=== PATIENT | female | born 1985 | race Caucasian/White ===

== ENCOUNTER 2018-01-29 20:13 | Emergency (ER) | payer SELFPAY, MEDICAID ==
[2018-01-29] MEDS: ONDANSETRON (ODT) 4 MG TAB ODT (23:25)
[2018-01-29] MEDS: DICYCLOMINE 10 MG CAP PO (23:25)
[2018-01-29] MEDS: ACETAMINOPHEN 325 MG TAB PO (23:26)
[2018-01-29] MEDS: IBUPROFEN 600 MG TAB PO (23:26)
== END 2018-01-30 00:09 | disposition home or self-care (01) ==
LOC: FTE 20:13
DX: A08.4 Viral intestinal infection, unspecified (principal)
CPT/HCPCS: 99284